=== PATIENT | female | born 1945 | race Caucasian/White ===

== ENCOUNTER 2016-06-08 17:12 | Emergency (ER) | payer MEDICARE, MEDICAID ==
[2010-09-09 14:34] VITALS: BMI 40.0
== END 2016-06-08 18:43 | disposition home or self-care (01) ==
LOC: D.ER 17:12
DX: J44.1 Chronic obstructive pulmonary disease with (acute) exacerbation (principal); I10 Essential (primary) hypertension; E11.9 Type 2 diabetes mellitus without complications; F17.200 Nicotine dependence, unspecified, uncomplicated

== ENCOUNTER 2018-09-10 00:54 | Emergency (ER) | payer MEDICARE, MEDICAID ==
[~2018-09-10] VITALS: Ht 160 cm; Wt 90.9 kg
[2018-09-10 00:57] VITALS: Ht 160 cm; Wt 90.9 kg
[2018-09-10] MEDS ORDERED: NEURONTIN 300300 MG PO (00:57)
[2018-09-10] MEDS ORDERED: METOPROLOL TART50 MG PO (00:58)
[2018-09-10] MEDS ORDERED: SYMBICORT 16010.2 GM INH (00:58)
[2018-09-10] MEDS ORDERED: MOBIC7.5 MG PO (00:58)
[2018-09-10] MEDS ORDERED: CHANTIX PAK 0.5 (00:58)
[2018-09-10] MEDS ORDERED: OMEPRAZOLE20 M1 PO ×2 (00:58→01:01)
[2018-09-10] MEDS ORDERED: COMBIVENT RESPIM4 GM INH (00:59)
[2018-09-10] MEDS ORDERED: JANUMET XR 50-1 EACH PO (00:59)
[2018-09-10] MEDS ORDERED: ROBAXIN500 MG PO (01:00)
[2018-09-10] MEDS ORDERED: PHENERGAN DM SYR5 ML PO (01:00)
[2018-09-10] MEDS ORDERED: PREDNISONE50 MG PO (02:56)
[2018-09-10] MEDS ORDERED: EPIPEN 2-P0.3 MG/0.3 IM (02:56)
[2018-09-10] MEDS ORDERED: BENADRYL50 MG PO (02:59)
[2018-09-10 03:14] VITALS: BP 142/77
== END 2018-09-10 03:14 | disposition home or self-care (01) ==
LOC: D.ER 00:54
DX: T63.481A Toxic effect of venom of other arthropod, accidental (unintentional), initial encounter (principal); Y92.89 Other specified places as the place of occurrence of the external cause; T63.461A Toxic effect of venom of wasps, accidental (unintentional), initial encounter